=== PATIENT | male | born 1950 | race Caucasian/White ===

== ENCOUNTER 2019-03-27 12:36 | Emergency (ER) | payer MEDICARE, OTHER ==
[~2019-03-27] VITALS: Ht 170.2 cm; Wt 84.8 kg
[2019-03-27 12:38] VITALS: Ht 170.2 cm; Wt 84.8 kg
[2019-03-27] MEDS ORDERED: HYDR-4011 PO (13:37)
--- NOTE | 2019-03-27 13:40 | ERD ---
ER Documentation Chief Complaint Chief Complaint Pt L shoulder pain after GLF yesterday. HPI 68-year-old male misstepped yesterday and landed on his left shoulder. He has pain in the left clavicle area with swelling. Denies head injury, neck pain, deficits, restricted range of motion. Denies any bleeding or lacerations. Denies other injury other than his left shoulder or clavicle area. ROS All systems reviewed and are negative except as per history of present illness. Medications Home Meds Active Scripts Hydrocodone/Acetaminophen ([place] 5-325 Tablet) 1 Each Tablet, 1 TAB PO Q6H PRN for PAIN, #8 TAB Prov:FRANNY VO MD 03/27/19 Allergies Allergies: Coded Allergies: No Known Allergy (Unverified , 03/27/19) PMhx/Soc History of Surgery: Yes (lithotripsy) Anesthesia Reaction: No Hx Cardiac Disorders: Yes (HTN) Hx Psychiatric Problems: Yes (Depression) Hx Alcohol Use: Yes (occasional) Hx Substance Use: Yes (marijuana) Hx Tobacco Use: No Smoking Status: Never smoker FmHx Family History: No diabetes, No coronary disease, No other Physical Exam Vitals Vital Signs Date Temp Pulse Resp B/P (MAP) Pulse Ox O2 O2 Flow FiO2 Time Delivery Rate 03/27/19 97.5 63 20 191/89 97 12:38 (123) Physical Exam Const: No acute distress Head: Atraumatic Eyes: Normal Conjunctiva ENT: Normal External Ears, Nose and Mouth. Neck: Full range of motion. No meningismus. Resp: Clear to auscultation bilaterally Cardio: Regular rate and rhythm, no murmurs Abd: Soft, non tender, non distended. Normal bowel sounds Skin: No petechiae or rashes Back: No midline or flank tenderness Ext: No cyanosis, or edema. Tenderness and swelling over the left clavicle. No appreciable shoulder capsule tenderness, elbow or wrist tenderness. Left upper extremity is neurovascular intact. Neur: Awake and alert Psych: Normal Mood and Affect Procedures/MDM X-ray left clavicle 1V Interpreted by me: Bones: Commuted fracture of the left distal third clavicle. Joints: No dislocation Foreign body: None. Impression-left distal third clavicle fracture Patient placed in a left arm sling. Patient presents with signs of a comminuted left clavicle fracture without signs of tenting, additional complications after fall yesterday. Will discharge home with primary care and orthopedic follow-up for further motion treatment. Given a short course of [place] for acute pain but advised to take ibuprofen as well. There is no signs of ischemia, compartment syndrome, deficits, pneumothorax, hemothorax, additional complications. The patient was stable with no new complaints during the ER course. Clinically, there is no current evidence to suggest meningitis, sepsis, acute abdomen, pneumonia, stroke, acute coronary syndrome, pulmonary embolism, aortic dissection or any other emergent condition appearing to require further evaluation or hospitalization. Patient counseled regarding my diagnostic impression and care plan. Prior to discharge all questions answered. Pt agrees with treatment plan and understands strict return precautions. Pt is instructed to follow up with primary care provider within 24-48 hours. Precautionary instructions provided including instructions to return to the ER if not improving or for any worsening or changing symptoms or concerns. Disclaimer: Inadvertent spelling and grammatical errors are likely due to EHR/dictation software use and do not reflect on the overall quality of patient care. Also, please note that the electronic time recorded on this note does not necessarily reflect the actual time of the patient encounter. Departure Diagnosis: Primary Impression: Fx clavicle Encounter type: initial encounter Clavicle location: lateral end Fracture type: closed Fracture alignment: displaced Laterality: left Qualified Codes: S42.032A - Displaced fracture of lateral end of left clavicle, initial encounter for closed fracture Condition: Stable Patient Instructions: Fracture, Clavicle Referrals: REJI MELLO MD [facility] Hours: Tue-Fri 9:00 AM - 5:00 PM Additional Instructions: X-ray confirms clavicle fracture which rarely needs treatment. See aerotriangulation specialist for further evaluation and treatment. Recheck for fevers, shortness of breath, new worsening symptoms. Okay to take ibuprofen 600 mg 3 times a day as well for mild pain. FRANNY VO MD Mar 27, 2019 13:40
[2019-03-27 14:05] VITALS: BP 173/102; PULSE 62; RESP 18
== END 2019-03-27 14:08 | disposition home or self-care (01) ==
LOC: FTE 12:36
DX: S42.032A Displaced fracture of lateral end of left clavicle, initial encounter for closed fracture (principal); I10 Essential (primary) hypertension; W10.9XXA Fall (on) (from) unspecified stairs and steps, initial encounter; Y92.9 Unspecified place or not applicable
CPT/HCPCS: 73000